=== PATIENT | female | born 1995 | race African-American/Black ===

== ENCOUNTER 2018-11-22 19:56 | Emergency (ER) | payer MEDICAID ==
[2018-11-22] MEDS ORDERED: DICYCLOMINE HCL INJ 20 MG/2 ML AMPULE IM ONE (20:17)
[2018-11-22] MEDS ORDERED: ONDANSETRON HCL INJ/PF 4 MG/2 ML SDV IV ONE (20:17)
[2018-11-22] MEDS ORDERED: FAMOTIDINE INJ/PF 20 MG/2 ML SDV IV ONE (20:17)
[2018-11-22] MEDS ORDERED: NORMAL SALINE 1000 ML 1,000 ML IV ONE (20:17)
--- NOTE | 2018-11-22 20:21 | ER Document Report ---
ED Medical Screen (RME) - General Chief Complaint: Nausea/Vomiting/Diarrhea Stated Complaint: VOMITTING,DIARRHEA,ABDOMINAL PAIN Time Seen by Provider: 11/22/18 20:14 Notes: Patient is a 23-year-old female who presents to the emergency department with nausea, vomiting and diarrhea. Patient states she woke up this morning with abdominal pain that is generalized. Patient reports vomiting 4 times today as well as having 4 episodes of diarrhea. Patient denies blood in the emesis or stool. Patient denies sick contacts. Patient denies urinary symptoms. Patient denies any significant past medical or surgical history. TRAVEL OUTSIDE OF THE [place] IN LAST 30 DAYS: No - Related Data Allergies/Adverse Reactions: No Known Allergies Allergy (Verified 11/22/18 19:57) Past Medical History Renal/ Medical History: Denies: Hx Peritoneal Dialysis - Immunizations Immunizations up to date: Yes Hx Diphtheria, Pertussis, Tetanus Vaccination: Yes Physical Exam - Vital signs Vitals: Temp Pulse Resp BP Pulse Ox 97.7 F 106 H 18 124/69 100 11/22/18 20:04 11/22/18 20:04 11/22/18 20:04 11/22/18 20:04 11/22/18 20:04 - Abdominal Inspection: Normal Distension: No distension Bowel sounds: Normal Tenderness: Nontender Organomegaly: No organomegaly Course - Re-evaluation Re-evalutation: 11/22/18 20:20 I have greeted and performed a rapid initial assessment of this patient. A comprehensive ED assessment and evaluation of the patient, analysis of test results and completion of the medical decision making process will be conducted by additional ED providers. - Vital Signs Vital signs: Temp Pulse Resp BP Pulse Ox 97.7 F 106 H 18 124/69 100 11/22/18 20:04 11/22/18 20:04 11/22/18 20:04 11/22/18 20:04 11/22/18 20:04 - Laboratory Laboratory results interpreted by me: 11/22/18 20:00 POC Glucose 124 H
[2018-11-22 21:46] LABS: ABSOLUTE LYMPHOCYTES (AUTO) 0.9 10^3/uL (0.5-4.7); ABSOLUTE MONOCYTES (AUTO) 0.3 10^3/uL (0.1-1.4); ABSOLUTE NEUT (AUTO) 8.9 10^3/uL (1.7-8.2); BASOPHILS % (AUTO) 0.3 % (0-2); HEMATOCRIT 43.5 % (36.0-47.0); HEMOGLOBIN 14.6 g/dL (12.0-15.5); LYMPHOCYTES % (AUTO) 9.2 % (13-45); MEAN CORPUSCULAR HEMOGLOBIN 30.2 pg (27.0-33.4); MEAN CORPUSCULAR HGB CONC 33.7 g/dL (32.0-36.0); MEAN CORPUSCULAR VOLUME 90 fl (80-97); MONOCYTES % (AUTO) 3.1 % (3-13); PLATELET COUNT 221 10^3/uL (150-450); RED BLOOD COUNT 4.85 10^6/uL (3.72-5.28); RED CELL DISTRIBUTION WIDTH 13.5 % (11.5-14.0); SEGMENTED NEUTROPHILS % (AUTO) 87.4 % (42-78); TOTAL CELLS COUNTED % (AUTO) 100 %; WHITE BLOOD COUNT 10.2 10^3/uL (4.0-10.5)
[2018-11-22 22:00] LABS: ALBUMIN 4.7 g/dL (3.5-5.0); ALKALINE PHOSPHATASE 56 U/L (38-126); ANION GAP 10 (5-19); ASPARTATE AMINO TRANSFERASE 34 U/L (14-36); BILIRUBIN,DIRECT 0.3 mg/dL (0.0-0.4); BILIRUBIN,TOTAL 0.9 mg/dL (0.2-1.3); BLOOD UREA NITROGEN 9 mg/dL (7-20); CALCIUM 9.9 mg/dL (8.4-10.2); CARBON DIOXIDE 23 mmol/L (22-30); CHLORIDE 106 mmol/L (98-107); GLUCOSE 129 mg/dL (75-110); POTASSIUM 3.7 mmol/L (3.6-5.0)
[2018-11-23] MEDS ORDERED: PROMETHAZINE HCL INJ 50 MG/1 ML VIAL IM ONE (01:57)
[2018-11-23] MEDS ORDERED: NORMAL SALINE 1000 ML 1,000 ML IV ONE (01:59)
[2018-11-23] MEDS ORDERED: PROMETHAZINE HCL INJ 50 MG/1 ML VIAL IM PRN (01:59)
--- NOTE | 2018-11-23 02:02 | ER Document Report ---
ED GI/ - General Chief Complaint: Nausea/Vomiting/Diarrhea Stated Complaint: VOMITTING,DIARRHEA,ABDOMINAL PAIN Time Seen by Provider: 11/22/18 20:14 Primary Care Provider: JOHN SERRANO PA [Primary Care Provider] - Follow up as needed Notes: 23-year-old female who presents to the emergency department with nausea, v omiting and diarrhea. Patient states she woke up this morning with abdominal pain that is generalized. Patient reports vomiting 4 times today as well as having 4 episodes of diarrhea. Patient denies blood in the emesis or stool. Patient denies sick contacts. Patient denies fevers but complains of rigors, denies acute shortness of breath or chest pain. Patient denies urinary symptoms. Patient denies any significant past medical or surgical history. TRAVEL OUTSIDE OF THE [place] IN LAST 30 DAYS: No - Related Data Allergies/Adverse Reactions: No Known Allergies Allergy (Verified 11/22/18 19:57) Past Medical History - Social History Smoking Status: Never Smoker Family History: Reviewed & Not Pertinent Patient has suicidal ideation: No Patient has homicidal ideation: No Renal/ Medical History: Denies: Hx Peritoneal Dialysis - Immunizations Immunizations up to date: Yes Hx Diphtheria, Pertussis, Tetanus Vaccination: Yes Review of Systems - Review of Systems Constitutional: See HPI EENT: No symptoms reported Cardiovascular: See HPI Respiratory: See HPI Gastrointestinal: See HPI Genitourinary: See HPI Female Genitourinary: No symptoms reported Musculoskeletal: No symptoms reported Skin: No symptoms reported Hematologic/Lymphatic: No symptoms reported Neurological/Psychological: No symptoms reported Physical Exam - Vital signs Vitals: Temp Pulse Resp BP Pulse Ox 97.7 F 106 H 18 124/69 100 11/22/18 20:04 11/22/18 20:04 11/22/18 20:04 11/22/18 20:04 11/22/18 20:04 - Notes Notes: PHYSICAL EXAMINATION: Reviewed vital signs and charting by RN GENERAL: Alert, interacts well. Mild distress with intermittent rigors HEAD: Normocephalic, atraumatic. EYES: Pupils equal and round. Extraocular movements intact. ENT: Oral mucosa moist, tongue midline. NECK: Full range of motion. Trachea midline. LUNGS: Clear to auscultation bilaterally, no wheezes, rales, or rhonchi. No respiratory distress. HEART: Regular rate and rhythm. No murmur ABDOMEN: soft, non-tender. No distention. Bowel sounds present, patient vomited while I was in the room during examination EXTREMITIES: Moves all 4 extremities spontaneously. No edema, No cyanosis. PSYCH: Normal affect, normal mood. SKIN: Warm, dry, normal turgor. No rashes or lesions noted. Course - Re-evaluation Re-evalutation: 11/23/18 02:01 Patient appears in mild distress but appears nontoxic. Patient actively vomited while I was examining her and I have ordered Phenergan 25 mg IM once as she received Zofran IV with minimal relief of symptoms. I also ordered another 1 L of normal saline to be given IV. Lab work all unremarkable, urine pending. Goal is to relieve patient's symptoms if she can tolerate p.o. intake. 11/23/18 03:54 Urinalysis did not show any evidence of UTI but did have some ketones, this was prior to her getting IV fluids. Patient did feel relief from the Phenergan 25 mg IM and was able to tolerate some shyam shweta and a little bit of cracker without vomiting. She did complain of little bit of nausea. I explained to her that as long as she can tolerate p.o. intake in light of her negative work-up she should be able to discharge home if she is comfortable with that. I have ordered p.o. fluids officially so nursing can administer and do an assessment. Plan is to send her home with a prescription for Phenergan. Pending p.o. challenge she is stable for discharge. 11/23/18 07:41 Patient tolerated p.o. challenge and did have some mild nausea but I am sending her home with a prescription for Phenergan p.o. She is stable for discharge. - Vital Signs Vital signs: Temp Pulse Resp BP Pulse Ox 98.4 F 78 16 164/72 H 100 11/23/18 05:08 11/23/18 05:08 11/23/18 05:08 11/23/18 05:08 11/22/18 20:04 - Laboratory Result Diagrams: 11/22/18 21:18 11/22/18 21:18 Laboratory results interpreted by me: 11/22/18 11/22/18 11/22/18 20:00 21:18 21:18 Seg Neutrophils % 87.4 H Lymphocytes % 9.2 L Absolute Neutrophils 8.9 H Glucose 129 H POC Glucose 124 H Urine Protein Urine Glucose (UA) Urine Ketones Urine Ascorbic Acid 11/23/18 01:30 Seg Neutrophils % Lymphocytes % Absolute Neutrophils Glucose POC Glucose Urine Protein 30 H Urine Glucose (UA) 50 H Urine Ketones 20 H Urine Ascorbic Acid 40 H Discharge - Discharge Clinical Impression: Nausea and vomiting, Diarrhea Condition: Good Disposition: HOME, SELF-CARE Additional Instructions: You have been seen in the Emergency Department (ED) today for nausea and vo miting. Your work up today has not shown a clear cause for your symptoms. You have been prescribed Phenergan; please use as prescribed as needed for your nausea. Follow up with your doctor as soon as possible regarding today's emergent visit and your symptoms of nausea. Return to the Emergency Department (ED) if you develop abdominal pain, bloody vomiting, bloody diarrhea, if you are unable to tolerate fluids due to vomiting, or if you develop other symptoms that concern you. Prescriptions: Promethazine HCl [Phenergan 25 mg Tablet] 25 mg PO Q6H PRN #20 tablet PRN Reason: Forms: Return to Work Referrals: JOHN SERRANO PA [Primary Care Provider] - Follow up as needed
[2018-11-23] MEDS ORDERED: PROMETHAZINE HCL INJ 50 MG/1 ML VIAL ONE (02:19)
[2018-11-23 02:22] LABS: AMORPHOUS SEDIMENT,URINE TRACE /HPF; APPEARANCE,URINE TURBID; BILIRUBIN,URINE NEGATIVE (NEGATIVE); COLOR,URINE YELLOW; GLUCOSE, URINE 50 mg/dL (NEGATIVE); KETONES,URINE 20 mg/dL (NEGATIVE); LEUKOCYTE ESTERASE,URINE NEGATIVE (NEGATIVE); NITRITE,URINE NEGATIVE (NEGATIVE); PROTEIN,URINE 30 mg/dL (NEGATIVE); URINE SPECIFIC GRAVITY 1.031; UROBILINOGEN,URINE NEGATIVE mg/dL (<2.0)
[2018-11-23 05:10] VITALS: BP 164/72
== END 2018-11-23 05:07 | disposition home or self-care (01) ==
LOC: ER 19:56
DX: R11.2 Nausea with vomiting, unspecified (principal); R19.7 Diarrhea, unspecified; R10.84 Generalized abdominal pain
CPT/HCPCS: 36415; 82962; 83690; 85025; 81025; 80053; 81001; J0500; J2550; J2405; J7030 ×2; S0028; 96361; 96374; 96375; 99284

== ENCOUNTER 2019-01-10 18:00 | Emergency (ER) | payer MEDICAID ==
[2019-01-10] MEDS ORDERED: IBUPROFEN 800 MG TABLET PO ONE (18:29)
--- NOTE | 2019-01-10 18:33 | ER Document Report ---
HPI - HPI Patient complains to provider of: left ankle pain Time Seen by Provider: 01/10/19 18:29 Onset: Other - few days ago Onset/Duration: Persistent Quality of pain: Achy Pain Level: 3 Context: This 23-year-old female presents emergency department left ankle pain. Reports she tripped a couple days ago and her left ankles been hurting since then. She reports she hurt it when she was in high school also but never fractured ankle. Reports it hurts when she walks. No other complaints such as fever vomiting diarrhea. Associated Symptoms: None Exacerbated by: Denies Relieved by: Denies Similar symptoms previously: No Recently seen / treated by doctor: No - REPRODUCTIVE Reproductive: DENIES: : Past Medical History - General Information source: Patient Last Menstrual Period: iud - Social History Smoking Status: Current Every Day Smoker Chew tobacco use (# tins/day): No Frequency of alcohol use: None Drug Abuse: None Family History: Reviewed & Not Pertinent Patient has suicidal ideation: No Patient has homicidal ideation: No - Medical History Medical History: Negative Renal/ Medical History: Denies: Hx Peritoneal Dialysis Surgical Hx: Negative - Immunizations Immunizations up to date: Yes Hx Diphtheria, Pertussis, Tetanus Vaccination: Yes Vertical Provider Document - CONSTITUTIONAL Agree With Documented VS: Yes Exam Limitations: No Limitations General Appearance: WD/WN, No Apparent Distress - INFECTION CONTROL TRAVEL OUTSIDE OF THE [place] IN LAST 30 DAYS: No - HEENT HEENT: Atraumatic, Normocephalic - NECK Neck: Normal Inspection, Supple - RESPIRATORY Respiratory: No Respiratory Distress - CARDIOVASCULAR Cardiovascular: Regular Rate - MUSCULOSKELETAL/EXTREMETIES Musculoskeletal/Extremeties: MAEW, FROM, Tender - left ankle medially ttp, no obvious deformty, good pedal pulse, cap refill <3 sec. no erythema, no warmth, no swelling Course - Re-evaluation Re-evalutation: 01/10/19 19:29 Ankle X-Ray 01/10/19 18:29 IMPRESSION: Mild soft tissue swelling adjacent to the lateral malleolus without an associated fracture or dislocation. This 23-year-old female presents to the emergency department with complaints of left ankle pain after she tripped a couple days ago. She reports she did hurt her ankle when she was in high school. No obvious deformity. X-ray is negative for acute fracture. Patient was instructed to rest ice elevate the ankle. Take Motrin for the pain. She verbalized understand all instructions. Tyrone wrap placed for comfort. Dictation of this chart was performed using voice recognition software; therefore, there may be some unintended grammatical errors. - Vital Signs Vital signs: Temp Pulse Resp BP Pulse Ox 98.2 F 75 16 113/61 99 01/10/19 18:10 01/10/19 18:10 01/10/19 18:10 01/10/19 18:10 01/10/19 18:10 - Diagnostic Test Radiology reviewed: Image reviewed, Reports reviewed Procedures - Immobilization Left Ankle Pre-Proc Neuro Vasc Exam: Normal Immobilizer type: Tyrone wrap Performed by: PCT Post-Proc Neuro Vasc Exam: Unchanged from pre-exam Alignment checked and good: Yes Discharge - Discharge Clinical Impression: Left ankle injury Condition: Stable Disposition: HOME, SELF-CARE Instructions: Tyrone Wrap ([facility]), Use of [id number] Ibuprofen ([facility]), Ice & Elevation ([facility]) Additional Instructions: *You have been evaluated for an ankle injury *Rest/Ice/Elevate your ankle *Maintain the tyrone wrap for comfort *Follow up with your primary care provider within 1 week for referral to orthopedics as indicated *Take ibuprofen as indicated for pain *Return to ED for worsening condition, changes, needs Referrals: JOHN SERRANO PA [Primary Care Provider] - Follow up in 1 week
--- NOTE | 2019-01-10 19:06 | RADIOLOGY REPORT (SQ) ---
EXAM DESCRIPTION: ANKLE LEFT COMPLETE COMPLETED DATE/TIME: 01/10/2019 6:54 pm REASON FOR STUDY: pain, tripped COMPARISON: None. NUMBER OF VIEWS: Three views. TECHNIQUE: AP, lateral, and oblique radiographic images acquired of the left ankle. LIMITATIONS: None. FINDINGS: MINERALIZATION: Normal. BONES: No acute fracture or dislocation. The ankle mortise and talar dome are intact. JOINTS: No effusions. SOFT TISSUES: Mild soft tissue swelling adjacent to the lateral malleolus. The Achilles tendon silho uette is intact. OTHER: No other finding. IMPRESSION: Mild soft tissue swelling adjacent to the lateral malleolus without an associated fractu re or dislocation. TECHNICAL DOCUMENTATION: JOB ID: [id number] [employer]- All Rights Reserved Reading location - IP/workstation name: [email or web address]
[2019-01-10 20:16] VITALS: BP 125/57
== END 2019-01-10 20:15 | disposition home or self-care (01) ==
LOC: ER 18:00
DX: S99.912A Unspecified injury of left ankle, initial encounter (principal); M25.572 Pain in left ankle and joints of left foot; M79.89 Other specified soft tissue disorders; X58.XXXA Exposure to other specified factors, initial encounter; F17.200 Nicotine dependence, unspecified, uncomplicated; Z97.5 Presence of (intrauterine) contraceptive device
CPT/HCPCS: 99283; 73610; J3490

== ENCOUNTER 2019-04-01 18:55 | Emergency (ER) | payer MEDICAID ==
[2019-04-01] MEDS ORDERED: ONDANSETRON HCL INJ/PF 4 MG/2 ML SDV IV ONE (19:55)
[2019-04-01] MEDS ORDERED: ACETAMINOPHEN 325 MG TABLET PO ONE (19:56)
--- NOTE | 2019-04-01 19:57 | ER Document Report ---
ED Medical Screen (RME) - General Chief Complaint: Vomiting/Diarrhea Stated Complaint: VOMITING/WEAK Time Seen by Provider: 04/01/19 19:50 Primary Care Provider: JOHN SERRANO PA [Primary Care Provider] - Follow up as needed Notes: 23-year-old female presents with 4 days of persistent nausea and vomiting. Patient also complains of acute weakness, lethargy, and unable to tolerate any p.o. Patient extremely tachycardic at 138. Exam: Mildly ill-appearing in mild distress, tachycardic at 138 with regular rhythm, mucous membranes dry I have greeted and performed a rapid initial assessment of this patient. A com prehensive ED assessment and evaluation of the patient, analysis of test results and completion of medical decision making process will be conducted by an additional ED providers. TRAVEL OUTSIDE OF THE [place] IN LAST 30 DAYS: No - Related Data Allergies/Adverse Reactions: No Known Allergies Allergy (Verified 11/22/18 19:57) Past Medical History Renal/ Medical History: Denies: Hx Peritoneal Dialysis - Immunizations Immunizations up to date: Yes Hx Diphtheria, Pertussis, Tetanus Vaccination: Yes Physical Exam - Vital signs Vitals: Temp Pulse Resp BP 98.4 F 125 H 20 100/66 04/01/19 19:05 04/01/19 19:05 04/01/19 19:05 04/01/19 19:05 Course - Vital Signs Vital signs: Temp Pulse Resp BP Pulse Ox 98.4 F 125 H 20 100/66 04/01/19 19:05 04/01/19 19:05 04/01/19 19:05 04/01/19 19:05 Doctor's Discharge - Discharge Referrals: JOHN SERRANO PA [Primary Care Provider] - Follow up as needed
[2019-04-01 21:55] LABS: ALBUMIN 4.7 g/dL (3.5-5.0); ALKALINE PHOSPHATASE 49 U/L (38-126); ANION GAP 12 (5-19); ASPARTATE AMINO TRANSFERASE 18 U/L (14-36); BILIRUBIN,DIRECT 0.2 mg/dL (0.0-0.4); BILIRUBIN,TOTAL 1.8 mg/dL (0.2-1.3); BLOOD UREA NITROGEN 14 mg/dL (7-20); CALCIUM 9.8 mg/dL (8.4-10.2); CARBON DIOXIDE 30 mmol/L (22-30); CHLORIDE 97 mmol/L (98-107); GLUCOSE 99 mg/dL (75-110); POTASSIUM 3.2 mmol/L (3.6-5.0); TOTAL PROTEIN 7.9 g/dL (6.3-8.2)
[2019-04-01 21:59] LABS: ABSOLUTE BASOPHILS # (AUTO) 0.1 10^3/uL (0.0-0.2); ABSOLUTE LYMPHOCYTES (AUTO) 2.9 10^3/uL (0.5-4.7); ABSOLUTE MONOCYTES (AUTO) 1.2 10^3/uL (0.1-1.4); ABSOLUTE NEUT (AUTO) 7.1 10^3/uL (1.7-8.2); BASOPHILS % (AUTO) 0.5 % (0-2); EOSINOPHILS % (AUTO) 0.4 % (0-6); HEMATOCRIT 47.8 % (36.0-47.0); HEMOGLOBIN 16.4 g/dL (12.0-15.5); LYMPHOCYTES % (AUTO) 25.7 % (13-45); MEAN CORPUSCULAR HEMOGLOBIN 30.4 pg (27.0-33.4); MEAN CORPUSCULAR HGB CONC 34.3 g/dL (32.0-36.0); MEAN CORPUSCULAR VOLUME 89 fl (80-97); MONOCYTES % (AUTO) 10.6 % (3-13); PLATELET COUNT 230 10^3/uL (150-450); RED CELL DISTRIBUTION WIDTH 13.2 % (11.5-14.0); SEGMENTED NEUTROPHILS % (AUTO) 62.8 % (42-78); TOTAL CELLS COUNTED % (AUTO) 100 %; WHITE BLOOD COUNT 11.3 10^3/uL (4.0-10.5)
[2019-04-01] MEDS ORDERED: ONDANSETRON HCL INJ/PF 4 MG/2 ML SDV ONE (22:08)
[2019-04-01 22:12] LABS: APPEARANCE,URINE SLIGHTLY-CLOUDY; BILIRUBIN,URINE NEGATIVE (NEGATIVE); GLUCOSE, URINE NEGATIVE (NEGATIVE); KETONES,URINE TRACE mg/dL (NEGATIVE); LEUKOCYTE ESTERASE,URINE SMALL (NEGATIVE); NITRITE,URINE NEGATIVE (NEGATIVE); PROTEIN,URINE 100 mg/dL (NEGATIVE); URINE SPECIFIC GRAVITY 1.033
[2019-04-01 22:13] LABS: COLOR,URINE DARK YELLOW
[2019-04-01] MEDS: NORMAL SALINE 1000 ML 1,000 ML IV PRN ×2 (22:16→22:52)
[2019-04-02] MEDS ORDERED: CEPHALEXIN 500 MG CAPSULE PO ONE (00:31)
[2019-04-02] MEDS ORDERED: FAMOTIDINE 20 MG TABLET PO ONE (00:32)
--- NOTE | 2019-04-02 00:33 | ER Document Report ---
ED GI/ - General Chief Complaint: Nausea/Vomiting/Diarrhea Stated Complaint: VOMITING/WEAK Time Seen by Provider: 04/01/19 19:50 Primary Care Provider: JOHN SERRANO PA [Primary Care Provider] - Follow up as needed Notes: Patient is a 23-year-old female that comes emergency department for chief complaint of 4 days of vomiting and diarrhea. She states that she has random vomiting throughout the day and whenever she eats she has loose diarrhea. She denies hematemesis or hematochezia. She states she has had chills as well. She denies raw food, recent travel, she states she has had sick exposures as well at work. She denies surgeries, daily medications, or past medical history. She smokes occasionally, drinks occasionally, denies recreational drugs. She is currently on her menstrual cycle. TRAVEL OUTSIDE OF THE [place] IN LAST 30 DAYS: No - Related Data Allergies/Adverse Reactions: No Known Allergies Allergy (Verified 11/22/18 19:57) Home Medications: denies Past Medical History - General Information source: Patient - Social History Smoking Status: Current Every Day Smoker Chew tobacco use (# tins/day): No Frequency of alcohol use: Occasional Drug Abuse: None Lives with: Family Family History: Reviewed & Not Pertinent Patient has suicidal ideation: No Patient has homicidal ideation: No Renal/ Medical History: Denies: Hx Peritoneal Dialysis - Immunizations Immunizations up to date: Yes Hx Diphtheria, Pertussis, Tetanus Vaccination: Yes Review of Systems - Review of Systems Constitutional: See HPI EENT: No symptoms reported Cardiovascular: No symptoms reported Respiratory: No symptoms reported Gastrointestinal: See HPI Genitourinary: No symptoms reported Female Genitourinary: No symptoms reported Musculoskeletal: No symptoms reported Skin: No symptoms reported Hematologic/Lymphatic: No symptoms reported Neurological/Psychological: No symptoms reported Physical Exam - Vital signs Vitals: Temp Pulse Resp BP 98.4 F 125 H 20 100/66 04/01/19 19:05 04/01/19 19:05 04/01/19 19:05 04/01/19 19:05 - Notes Notes: GENERAL: Alert, interacts well. No acute distress. HEAD: Normocephalic, atraumatic. EYES: Pupils equal, round, and reactive to light. Extraocular movements intact. ENT: Oral mucosa dry, tongue midline. Oropharynx unremarkable. Airway patent. NECK: Full range of motion. Supple. Trachea midline. LUNGS: Clear to auscultation bilaterally, no wheezes, rales, or rhonchi. No respiratory distress. HEART: Regular rate and rhythm. No murmur ABDOMEN: Soft, non-tender. Non-distended. Bowel sounds present in all 4 quadrants. GENITOURINARY: Deferred EXTREMITIES: Moves all 4 extremities spontaneously. No edema, normal radial and dorsalis pedis pulses bilaterally. No cyanosis. BACK: no cervical, thoracic, lumbar midline tenderness. No saddle anesthesia, normal distal neurovascular exam. Moves all extremities in full range of motion. NEUROLOGICAL: Alert and oriented x3. Normal speech. Cranial nerves II through XII grossly intact. PSYCH: Normal affect, normal mood. SKIN: Warm, dry, normal turgor. No rashes or lesions noted. Course - Re-evaluation Re-evalutation: Patient was initially tachycardic in triage, however on my exam her heart rate is normal. Her abdomen is actually soft and benign, she is well-appearing, alert, sitting up. Work-up does indicate significant dehydration with concentrated hemoglobin, low potassium, concentrated urine with ketones. However after IV fluids and treatment patient is asymptomatic. Urine could suggest developing infection with red blood cells and white blood cells. No CVA tenderness, fever. Patient states she feels much better, she tolerated p.o. without any difficulty. Discussed options with patient. I suspect patient has a viral gastroenteritis, she will also be treated with cephalexin for a urinary tract infection. Discussed expectations, follow-up, and return precautions. She states understanding and agreement. Stable at time of discharge. - Vital Signs Vital signs: Temp Pulse Resp BP Pulse Ox 98.1 F 57 L 16 106/61 99 04/02/19 00:47 04/02/19 00:47 04/02/19 00:47 04/02/19 00:47 04/02/19 00:47 - Laboratory Result Diagrams: 04/01/19 21:25 04/01/19 21:25 Laboratory results interpreted by me: 04/01/19 04/01/19 04/01/19 21:25 21:25 21:55 WBC 11.3 H RBC 5.40 H Hgb 16.4 H Hct 47.8 H Potassium 3.2 L Chloride 97 L Magnesium 2.5 H Total Bilirubin 1.8 H Urine Protein 100 H Urine Ketones TRACE H Urine Blood LARGE H Urine Urobilinogen 4.0 H Ur Leukocyte Esterase SMALL H Discharge - Discharge Clinical Impression: Nausea vomiting and diarrhea, Dehydration, Hypokalemia Condition: Stable Disposition: HOME, SELF-CARE Additional Instructions: You have been treated for dehydration from your vomiting and diarrhea. You are also being treated for urinary tract infection that has started developing. Suspect your symptoms are initially from a virus, this should resolve with time. Take antibiotic as prescribed, take Zofran if needed for nausea, start with bland food, plenty of fluids, and slowly progress your diet. Your potassium was low from the vomiting and diarrhea, this was supplemented, increase potassium in your diet over the next week or so. Return if you worsen including uncontrolled vomiting, severe worsening abdominal pain or swelling, spiking fevers, or any other concerning or worsening symptoms. Prescriptions: Cephalexin Monohydrate [Keflex 500 mg Capsule] 500 mg PO BID 7 Days #14 capsule Ondansetron [Zofran Odt 4 mg Tablet] 1 - 2 tab PO Q4H PRN #12 tab.rapdis PRN Reason: For Nausea/Vomiting Forms: Return to Work Referrals: JOHN SERRANO PA [Primary Care Provider] - Follow up as needed
[2019-04-02 00:48] VITALS: BP 106/61
[2019-04-02] MEDS ORDERED: ONDANSETRON ODT 4 MG TAB (6 TAB/ER DISP) PO PRN (00:53)
[2019-04-02] MEDS ORDERED: POTASSIUM CHLORIDE 10 MEQ TABLET.ER PO ONE (00:53)
== END 2019-04-02 01:00 | disposition home or self-care (01) ==
LOC: ER 18:55
DX: R11.2 Nausea with vomiting, unspecified (principal); R19.7 Diarrhea, unspecified; E86.0 Dehydration; E87.6 Hypokalemia; F17.200 Nicotine dependence, unspecified, uncomplicated
CPT/HCPCS: 99284; 96361; 96374; 36415; 87086; 83735; 85025; 81025; 80053; 81001; J3490; J2405; J7030